=== PATIENT | female | born 1965 | race Caucasian/White ===

== ENCOUNTER 2023-02-02 03:55 | Day surgery (SDC) | payer OTHER ==
[2023-01-29 09:50] VITALS: BMI 29.2
[2023-02-02] MEDS ORDERED: MIDAZOLAM HCL 2 MG/2 ML SINGLE DOSE VIAL ONE (12:43)
[2023-02-02] MEDS ORDERED: PROPOFOL 20 ML ONE (12:43)
[2023-02-02] MEDS ORDERED: LIDOCAINE HCL 1%, 10 MG/ML (10ML VIAL) MDV ONE (12:57)
[2023-02-02] MEDS ORDERED: LIDOCAINE HCL 1%, 10 MG/ML (20ML VIAL) INF ONE ×2 (13:18→13:44)
[2023-02-02] MEDS ORDERED: oxyCODONE HCL 5 MG TABLET PO PRN (13:30)
[2023-02-02] MEDS ORDERED: LACTATED RINGERS SOLUTION 1,000 ML IV SCH (13:30)
[2023-02-02] MEDS ORDERED: ONDANSETRON 4 MG/2 ML VIAL IVPUSH PRN (13:30)
[2023-02-02] MEDS ORDERED: ACETAMINOPHEN 325 MG TABLET (FP) PO PRN (13:30)
[2023-02-02 15:28] VITALS: RESP 18
[2023-02-02 18:30] VITALS: BP 133/64; PULSE 69; TEMP 98.2
== END 2023-02-02 16:55 | disposition home or self-care (01) ==
LOC: JASU-SURG 03:55
PROVIDERS: ATTEND Surgery
PROC: 0HBU0ZX Excision of Left Breast, Open Approach, Diagnostic (ICD-10-PCS; principal; 2023-02-02 13:00)
DX: D24.2 Benign neoplasm of left breast (principal)
CPT/HCPCS: 19281; 76098-TC-FY; 88307-TC; 88342-TC; 94760